=== PATIENT | female | born 1930 | race American Indian/Alaskan Native ===

== ENCOUNTER 2017-04-07 10:40 | Emergency (ER) | payer MEDICARE, MEDICAID ==
[2017-04-07 11:08] VITALS: RESP 20
--- NOTE | 2017-04-07 12:19 | C.PDOC ---
History Of Present Illness 86-year-old female, presents to the emergency department with complaints of difficulty ambulating. Patient with swollen lower extremities, and vascular injury to right leg. Patient notes that she is generally able to walk. yesterday , patient noticed that she was talking a long time to reach the door, and symptoms persisted this morning, prompting her visit to the ED. Denies any fevers or chills. Time Seen by Provider: 04/07/17 12:04 Chief Complaint (Nursing): Lower Extremity Problem/Injury History Per: Patient History/Exam Limitations: no limitations Onset/Duration Of Symptoms: Days Current Symptoms Are (Timing): Still Present Severity: Moderate Past Medical History Reviewed: Historical Data, Nursing Documentation, Vital Signs Vital Signs: Last Vital Signs Temp 99.2 F 04/07/17 14:30 Pulse 78 04/07/17 14:30 Resp 20 04/07/17 14:30 BP 126/54 L 04/07/17 14:30 Pulse Ox 99 04/07/17 14:55 - Medical History PMH: Arthritis, Asthma, Atrial Fibrillation, Cardia Arrhythmia, Diverticulitis, HTN, Migraine Denies: Gall Bladder Disease (''GALLSTONES REMOVED'') Surgical History: Cholecystectomy ("gallstones removed") - [facility] Procedures VACCINATION [facility] (05/21/15) Family History: States: No Known Family Hx - Social History Hx Alcohol Use: No Hx Substance Use: No - Immunization History Hx Tetanus Toxoid Vaccination: No Hx Influenza Vaccination: No Hx Pneumococcal Vaccination: No Review Of Systems Except As Marked, All Systems Reviewed And Found Negative. Constitutional: Negative for: Fever, Chills Cardiovascular: Negative for: Chest Pain, Palpitations Respiratory: Negative for: Shortness of Breath Gastrointestinal: Negative for: Nausea, Vomiting Genitourinary: Negative for: Dysuria, Frequency Musculoskeletal: Positive for: Leg Pain Physical Exam - Physical Exam Appears: Non-toxic, No Acute Distress Skin: Warm, Dry, No Rash Head: Atraumatic, Normacephalic Eye(s): bilateral: Normal Inspection, PERRL Nose: Normal Oral Mucosa: Moist Lips: Normal Appearing Neck: Normal ROM Chest: Symmetrical Cardiovascular: Rhythm Regular, No Murmur Respiratory: Normal Breath Sounds, No Accessory Muscle Use Gastrointestinal/Abdominal: Soft, No Tenderness Extremity: Other (B/L legs with pitting edema and venous stasis changes. ) Neurological/Psych: Oriented x3, Normal Speech ED Course And Treatment - Laboratory Results Result Diagrams: 04/07/17 12:39 04/07/17 12:39 O2 Sat by Pulse Oximetry: 99 Disposition Counseled Patient/Family Regarding: Studies Performed, Diagnosis, Need For Followup, Rx Given - Disposition Referrals: Ramon Turcios MD [Staff Provider] - Disposition: HOME/ ROUTINE Disposition Time: 14:53 Condition: GUARDED Prescriptions: Nitrofurantoin Macrocrystals [Macrobid] 1 cap PO BID #14 cap Instructions: Urinary Tract Infection in Women (DC) Forms: General Discharge Instructions - POA Present On Arrival: None - Clinical Impression Clinical Impression: UTI (urinary tract infection) - PA / HARNESS RIGGER / Resident Statement MD/DO has reviewed & agrees with the documentation as recorded. - Scribe Statement The provider has reviewed the documentation as recorded by the Scribe (Yudelka Mark)
[2017-04-07 12:42] LABS: BASO % 0.4 % (0.0-2.0); EOS # 0.1 K/uL (0.0-0.7); EOS % 1.1 % (0.0-4.0); HEMOGLOBIN 13.3 g/dL (11.0-16.0); LYMPH # 1.8 K/uL (1.0-4.3); LYMPH % 19.9 % (20.0-40.0); MEAN CELL VOLUME 86.4 fL (81.0-99.0); MEAN CORPUSCULAR HEMOGLOBIN 28.3 pg (27.0-31.0); MEAN CORPUSCULAR HGB CONC 32.7 g/dL (33.0-37.0); MEAN PLATELET VOLUME 8.8 fL (7.2-11.7); MONO % 11.5 % (0.0-10.0); NEUT # 5.9 K/uL (1.8-7.0); NEUT % 67.1 % (50.0-75.0); RBC 4.7 Mil/uL (3.80-5.20); RED CELL DISTRIBUTION WIDTH 14.4 % (11.5-14.5)
[2017-04-07 12:43] LABS: WHITE BLOOD COUNT 8.9 K/uL (4.8-10.8)
[2017-04-07 12:58] LABS: BLOOD UREA NITROGEN 22 mg/dL (7-17); GFR AFRICAN-AMERICAN 52; GFR NON-AFRICAN AMERICAN 43
[2017-04-07 12:59] LABS: CALCIUM 8.7 mg/dl (8.6-10.4)
[2017-04-07 13:08] LABS: B-TYPE NATRIURETIC PEPTIDE 23.2 pg/mL (0-900)
--- NOTE | 2017-04-07 13:20 | RAD ---
PROCEDURE: CHEST RADIOGRAPH, 1 VIEW HISTORY: SOB COMPARISON: 07/08/2016 FINDINGS: LUNGS: Clear. PLEURA: No pneumothorax or pleural fluid seen. CARDIOVASCULAR: Normal. OSSEOUS STRUCTURES: No significant abnormalities. VISUALIZED UPPER ABDOMEN: Normal. OTHER FINDINGS: None. IMPRESSION: No active disease.
[2017-04-07 13:25] LABS: SQUAMOUS EPITHIAL 3 /hpf (0-5); URINE BACTERIA RARE (<OCC); URINE BILIRUBIN NEGATIVE (NEGATIVE); URINE BLOOD NEGATIVE (NEGATIVE); URINE CLARITY Hazy (Clear); URINE COLOR Yellow (YELLOW); URINE GLUCOSE (UA) NORMAL (Normal); URINE LEUKOCYTE ESTERASE 3+ Leu/uL (Negative); URINE NITRATE NEGATIVE (NEGATIVE); URINE PROTEIN NEGATIVE (NEGATIVE)
[2017-04-07] MEDS ORDERED: cefTRIAXone IV 1 gm in Dextros 50 ML IVPB ONE ×2 (13:37→14:11)
[2017-04-07 14:31] VITALS: BP 126/54; PULSE 78; TEMP 99.2
[2017-04-07 14:55] VITALS: O2SAT 99
--- NOTE | 2017-04-09 07:05 | CARD ---
APPROVED REPORT EKG Measurement Heart [id number] <Conclusion> Sinus rhythm with 1st degree AV block Otherwise normal ECG
== END 2017-04-07 15:32 | disposition home or self-care (01) ==
LOC: C.ER 10:40
DX: N39.0 Urinary tract infection, site not specified (principal); R60.9 Edema, unspecified
CPT/HCPCS: 71010; 80048; 81001; 83880; 84484; 85025; 87086; 96365; 99284; J0696

== ENCOUNTER 2017-04-29 11:43 | Inpatient (IN) | payer MEDICARE, MEDICAID ==
--- NOTE | 2017-04-29 12:43 | C.PDOC ---
History Of Present Illness 86 yo female, presents with abdominal pain, chills, weakness, since this am. c/ o of diffuse abdominal pain. nofeers at home. mild cough, no v/d. Time Seen by Provider: 04/29/17 12:36 Chief Complaint (Nursing): Abdominal Pain Past Medical History Reviewed: Historical Data, Nursing Documentation, Vital Signs Vital Signs: Last Vital Signs Temp 98.2 F 04/30/17 06:00 Pulse 75 04/30/17 00:11 Resp 20 04/30/17 00:11 BP 129/73 04/30/17 00:11 Pulse Ox 96 04/30/17 00:11 - Medical History PMH: Alzheimer's Disease, Arthritis, Asthma, Atrial Fibrillation, Cardia Arrhythmia, Diverticulitis, HTN, Migraine Denies: Gall Bladder Disease (''GALLSTONES REMOVED'') Surgical History: Cholecystectomy ("gallstones removed") - [facility] Procedures VACCINATION [facility] (05/21/15) Family History: States: Unknown Family Hx - Social History Hx Alcohol Use: No Hx Substance Use: No - Immunization History Hx Tetanus Toxoid Vaccination: No Hx Influenza Vaccination: No (UNKNOWN) Hx Pneumococcal Vaccination: No Review Of Systems Except As Marked, All Systems Reviewed And Found Negative. Respiratory: Positive for: Cough Gastrointestinal: Positive for: Abdominal Pain Physical Exam - Physical Exam Appears: No Acute Distress, Chronically Ill Skin: Normal Color, Warm, Dry Eye(s): bilateral: Normal Inspection, PERRL, EOMI Nose: Normal Throat: Normal Neck: Normal Cardiovascular: Rhythm Regular Respiratory: Normal Breath Sounds Gastrointestinal/Abdominal: Normal Exam, Soft, Tenderness (lower abd ttp), No Guarding, No Rebound Back: Normal Inspection Extremity: Normal ROM ED Course And Treatment - Laboratory Results Result Diagrams: 04/29/17 12:46 04/29/17 13:31 O2 Sat by Pulse Oximetry: 95 Medical Decision Making Medical Decision Making: pt noted to be febirle on arrival - r/o sepsis, uti, pneumonia, abdominal pathology- labs imaging pending 630: noted luekocytosis. abd pain now resolved. ct neg. ua pending. hemodynamically stable. dr orozco accepts for sepsis. stable for floor. Disposition - Disposition Disposition: HOSPITALIZED Disposition Time: 06:00 Condition: FAIR - Clinical Impression Clinical Impression: Sepsis, Abdominal pain
[2017-04-29 12:50] LABS: BASO % 0.1 % (0.0-2.0); EOS # 0.1 K/uL (0.0-0.7); EOS % 0.7 % (0.0-4.0); HEMOGLOBIN 14.8 g/dL (11.0-16.0); LYMPH # 0.5 K/uL (1.0-4.3); LYMPH % 3.4 % (20.0-40.0); MEAN CELL VOLUME 85.1 fL (81.0-99.0); MEAN CORPUSCULAR HEMOGLOBIN 27.6 pg (27.0-31.0); MEAN CORPUSCULAR HGB CONC 32.5 g/dL (33.0-37.0); MEAN PLATELET VOLUME 9.5 fL (7.2-11.7); MONO # 0.5 K/uL (0.0-0.8); MONO % 3.5 % (0.0-10.0); NEUT # 13.5 K/uL (1.8-7.0); NEUT % 92.3 % (50.0-75.0); PLATELET COUNT 239 K/uL (130-400); RBC 5.34 Mil/uL (3.80-5.20); RED CELL DISTRIBUTION WIDTH 14.5 % (11.5-14.5)
[2017-04-29] MEDS ORDERED: Azithromycin 500 MG in Sodium Chloride 0.9% 250 ML IVPB STA (12:50)
[2017-04-29] MEDS ORDERED: cefTRIAXone IV 1 gm in Dextros 50 ML IVPB ONE ×2 (12:50→13:42)
[2017-04-29 12:51] LABS: WHITE BLOOD COUNT 14.6 K/uL (4.8-10.8)
[2017-04-29 12:58] LABS: INR 1.1
[2017-04-29 13:09] LABS: BANDS 8 % (0-2); EOSINOPHIL 1 % (0-4); LARGE PLATELETS PRESENT; LYMPHOCYTE 3 % (20-40); MONOCYTE 4 % (0-10); NEUTROPHIL 84 % (50-75); PLATELET ESTIMATE NORMAL (NORMAL); TOTAL CELLS COUNTED 100
[2017-04-29 13:09] LABS: VENOUS BLOOD GAS BASE EXCESS 4.8 mmol/L (0.0-2.0); VENOUS BLOOD GAS PCO2 48 mmHg (40-60); VENOUS BLOOD GAS PO2 19 mm/Hg (30-55); VENOUS BLOOD PH 7.41 (7.32-7.43)
--- NOTE | 2017-04-29 13:09 | RAD ---
PROCEDURE: CHEST RADIOGRAPH, 1 VIEW HISTORY: chest pain COMPARISON: None available. FINDINGS: LUNGS: The lungs are hyperinflated and there is peribronchial thickening with chronic changes in both lungs. No focal consolidation. PLEURA: No pneumothorax or pleural fluid seen. CARDIOVASCULAR: The heart is normal in size. Atherosclerotic aortic arch calcifications are present. OSSEOUS STRUCTURES: No significant abnormalities. VISUALIZED UPPER ABDOMEN: Normal. OTHER FINDINGS: None. IMPRESSION: No active pulmonary disease. COPD.
[2017-04-29] MEDS ORDERED: Azithromycin 500mg/250ML NS 500 MG/250 ML BAG IVPB ONE (13:42)
[2017-04-29 13:44] LABS: ALBUMIN 3.7 g/dL (3.5-5.0)
[2017-04-29 13:46] LABS: GFR AFRICAN-AMERICAN > 60; GFR NON-AFRICAN AMERICAN > 60
[2017-04-29 13:47] LABS: ALB/GLOB RATIO 1.2 (1.0-2.1); ALT/SGPT 26 U/L (9-52); AST/SGOT 18 U/L (14-36); BLOOD UREA NITROGEN 10 mg/dL (7-17); CALCIUM 8.7 mg/dl (8.6-10.4); LIPASE 39 U/L (23-300)
[2017-04-29] MEDS ORDERED: Iodixanol 320 MG/ML 100 ML BOTTLE IV ONE (16:49)
--- NOTE | 2017-04-29 17:58 | CT ---
PROCEDURE: CT Abdomen and Pelvis with contrast HISTORY: abd pain, fever COMPARISON: None. TECHNIQUE: Contrast dose: 100 cc Visipaque 320 Radiation dose: Total exam DLP = 437.12 mGy-cm. This CT exam was performed using one or more of the following dose reduction techniques: Automated exposure control, adjustment of the mA and/or kV according to patient size, and/or use of iterative reconstruction technique. FINDINGS: LOWER THORAX: Interstitial lung disease at the bases incompletely visualized. Acuity/ chronicity cannot be ascertained in the absence comparison studies. No discrete infiltrates, nodules or mass. LIVER: Hepatic steatosis. No focal masses. Low-attenuation well-circumscribed mass density right hepatic lobe. Mean Hounsfield unit values are higher than expected for simple cysts. The mass measures 2.5 x 3.2 cm. Internal calcification appears to be benign. GALLBLADDER AND BILE DUCTS: Status post cholecystectomy. No abnormality is seen in the gallbladder fossa. PANCREAS: Unremarkable. No gross lesion or ductal dilatation. SPLEEN: Unremarkable. ADRENALS: Unremarkable. No mass. KIDNEYS AND URETERS: Unremarkable. No hydronephrosis. No solid mass. Incidental finding(s): Simple cyst upper pole left kidney 12 mm. VASCULATURE: Unremarkable. No aortic aneurysm. BOWEL: Fecal impaction, constipation, diverticulosis without an acute inflammatory component. APPENDIX: No abnormalities to suggest acute appendicitis. No right lower quadrant inflammatory processes identified. PERITONEUM: Unremarkable. No free fluid. No free air. LYMPH NODES: Unremarkable. No enlarged lymph nodes. BLADDER: Unremarkable. REPRODUCTIVE: Prior hysterectomy. BONES: Scoliosis, secondary degenerative change at multiple levels. OTHER FINDINGS: None. IMPRESSION: No acute findings related to/accounting for the clinical presentation. Additional benign and/or incidental findings described above. Incidental finding(s): Likely benign, incompletely characterized cystic mass right hepatic lobe. Elective followup recommended.
[2017-04-29 18:27] LABS: SQUAMOUS EPITHIAL 1 /hpf (0-5); URINE BILIRUBIN NEGATIVE (NEGATIVE); URINE BLOOD NEGATIVE (NEGATIVE); URINE CLARITY Clear (Clear); URINE COLOR Yellow (YELLOW); URINE GLUCOSE (UA) NORMAL (Normal); URINE LEUKOCYTE ESTERASE TRACE Leu/uL (Negative); URINE NITRATE NEGATIVE (NEGATIVE); URINE PROTEIN NEGATIVE (NEGATIVE)
[2017-04-29 20:22] VITALS: RESP 20
[2017-04-29] MEDS ORDERED: Albuterol-Ipratrop 3 mg / 0.5 (3 ml) UD INH PRN (22:24)
--- NOTE | 2017-04-29 22:45 | CP.PCM.HP ---
History of Present Illness - History of Present Illness History of Present Illness: 86 year old female complaining of abdominal pain, chills and generalized malaise. Labs reveal a WBCs of 14,600. CT scan of the abdomen reveals no acute pathology. Admission was advised and follwing cultures antibiotic therapy was started. Past history includes ASHD, degenerative joint disease, hypertension and chronic obstructive pulmonary disease. Present on Admission - Present on Admission Any Indicators Present on Admission: No History of DVT/PE: No History of Uncontrolled Diabetes: No Urinary Catheter: No Decubitus Ulcer Present: No History Surgical Site Infection Following: None Past Patient History - Tetanus Immunizations Tetanus Immunization: Up to Date - Past Medical History & Family History Past Medical History?: Yes - Past Social History Smoking Status: Never Smoked Chewing Tobacco Use: No Cigar Use: No - CARDIAC Hx Atrial Fibrillation: Yes Hx Cardia Arrhythmia: Yes Hx Hypertension: Yes - PULMONARY Hx Asthma: Yes Hx Emphysema: Yes - NEUROLOGICAL Hx Alzheimer's Disease: Yes Hx Migraine: Yes - HEENT Hx HEENT Problems: Yes Hx Cataracts: Yes Hx Deafness: Yes (USES HEARING AID) - MUSCULOSKELETAL/RHEUMATOLOGICAL Hx Arthritis: Yes Hx Back Pain: Yes Hx Degenerative Joint Disease: Yes Hx Falls: Yes - GASTROINTESTINAL Hx Diverticulitis: Yes Hx Gall Bladder Disease: No (''GALLSTONES REMOVED'') - GENITOURINARY/GYNECOLOGICAL : 1 Para: 1 - PSYCHIATRIC Hx Substance Use: No - SURGICAL HISTORY Hx Cholecystectomy: Yes ("gallstones removed") - ANESTHESIA Hx Anesthesia: Yes Hx Anesthesia Reactions: No (UNKNOWN) Hx Malignant Hyperthermia: No Has any member of the family had a problem w/ anesthesia?: No Meds Allergies/Adverse Reactions: Allergies Allergy/AdvReac Type Severity Reaction Status Date / Time aspirin Allergy Verified 04/29/17 11:49 Physical Exam - Constitutional Appears: No Acute Distress - Head Exam Head Exam: NORMOCEPHALIC - Eye Exam Eye Exam: Normal appearance Pupil Exam: NORMAL ACCOMODATION - ENT Exam ENT Exam: Normal External Ear Exam - Neck Exam Neck exam: Positive for: Normal Inspection - Respiratory Exam Respiratory Exam: Decreased Breath Sounds - Cardiovascular Exam Cardiovascular Exam: REGULAR RHYTHM - GI/Abdominal Exam GI & Abdominal Exam: Hyperactive Bowel Sounds - Rectal Exam Rectal Exam: Deferred - Exam External exam: NORMAL EXTERNAL EXAM - Extremities Exam Extremities exam: Positive for: pedal edema - Back Exam Back exam: muscle spasm - Neurological Exam Neurological exam: Oriented x3 - Psychiatric Exam Psychiatric exam: Depressed Results - Vital Signs Recent Vital Signs: Last Vital Signs Temp 99.3 F 04/29/17 20:00 Pulse 79 04/29/17 20:00 Resp 20 04/29/17 20:00 BP 145/74 04/29/17 20:00 Pulse Ox 96 04/29/17 20:00 - Labs Result Diagrams: 04/29/17 12:46 04/29/17 13:31 Labs: Laboratory Results - last 24 hr 04/29/17 18:20 Urine Color Yellow Urine Clarity Clear Urine pH 7.0 Ur Specific [place] 1.035 H Urine Protein Negative Urine Glucose (UA) Normal Urine Ketones Negative Urine Blood Negative Urine Nitrate Negative Urine Bilirubin Negative Urine Urobilinogen 4.0 H Ur Leukocyte Esterase Trace Urine WBC (Auto) 9 H Urine RBC (Auto) 2 Ur Squamous Epith Cells 1 Assessment & Plan (1) Sepsis Status: Acute (2) Dizziness Status: Acute (3) Edema Status: Acute (4) Hypertension Status: Chronic Priority: Medium
[2017-04-29] MEDS: Potassium Chloride 20 mEq ER Tab PO SCH (22:56)
[2017-04-30 08:21] LABS: MEAN CORPUSCULAR HEMOGLOBIN 27.7 pg (27.0-31.0); MEAN CORPUSCULAR HGB CONC 32.6 g/dL (33.0-37.0); MEAN PLATELET VOLUME 8.6 fL (7.2-11.7); RBC 4.25 Mil/uL (3.80-5.20); RED CELL DISTRIBUTION WIDTH 14.4 % (11.5-14.5)
[2017-04-30 08:31] LABS: WHITE BLOOD COUNT 5.9 K/uL (4.8-10.8)
[2017-04-30 08:45] LABS: ALBUMIN 2.8 g/dL (3.5-5.0)
[2017-04-30 08:48] LABS: AST/SGOT 14 U/L (14-36); GFR AFRICAN-AMERICAN > 60; GFR NON-AFRICAN AMERICAN > 60
[2017-04-30 08:49] LABS: ALB/GLOB RATIO 1.1 (1.0-2.1); ALT/SGPT 26 U/L (9-52); BLOOD UREA NITROGEN 8 mg/dL (7-17); CALCIUM 8.2 mg/dl (8.6-10.4)
[2017-04-30] MEDS: Pantoprazole 40 mg EC Tab PO SCH (09:54)
[2017-04-30] MEDS: Enoxaparin 40 mg Syringe SC SCH (09:54)
[2017-04-30] MEDS: Potassium Chloride 20 mEq ER Tab PO SCH (09:54)
[2017-04-30] MEDS: diltiaZEM 180 mg/24 Hours CD Cap PO SCH (09:55)
[2017-04-30] MEDS: Nitroglycerin 0.4 mg/hr Top Patch TD SCH (09:55)
--- NOTE | 2017-04-30 17:06 | CP.PCM.CON ---
History of Present Illness - History of Present Illness History of Present Illness: 86 yo female, presents with abdominal pain, chills, weakness, since this am. c/ o of diffuse abdominal pain. no fevers at home. mild cough, no v/d. awake alert mildly confused denirs chest pain admitted for possible UTI/ sepsis - Medical History PMH: Alzheimer's Disease, Arthritis, Asthma, Atrial Fibrillation, Cardia Arrhythmia, Diverticulitis, HTN, Migraine Denies: Gall Bladder Disease (''GALLSTONES REMOVED'') Surgical History: Cholecystectomy ("gallstones removed") Review of Systems - Review of Systems All systems: reviewed and no additional remarkable complaints except - Constitutional Constitutional: As Per HPI, Anorexia, Chills, Fever - EENT Eyes: absent: As Per HPI, Blind Spots, Blurred Vision, Change in Vision, Decreased Night Vision, Diplopia, Discharge, Dry Eye, Exophthalmos, Floaters, Irritation, Itchy Eyes, Loss of Peripheral Vision, Pain, Photophobia, Requires Corrective Lenses, Sees Flashes, Spots in Vision, Tunnel Vision, Other Visual Disturbances, Loss of Vision, Other Ears: absent: As Per HPI, Decreased Hearing, Ear Discharge, Ear Pain, Tinnitus, Abnormal Hearing, Disequilibrium, Dizziness, Other Nose/Mouth/Throat: absent: As Per HPI, Epistaxis, Nasal Congestion, Nasal Discharge, Nasal Obstruction, Nasal Trauma, Nose Pain, Post Nasal Drip, Sinus Pain, Sinus Pressure, Bleeding Gums, Change in Voice, Dental Pain, Dry Mouth, Dysphagia, Halitosis, Hoarsness, Lip Swelling, Mouth Lesions, Mouth Pain, Odynophagia, Sore Throat, Throat Swelling, Tongue Swelling, Facial Pain, Neck Pain, Neck Mass, Other - Breasts Breasts: absent: As Per HPI, Change in Shape, Mass, Pain, Nipple Discharge, Nipple Inversion, Skin Changes, Swelling, Other - Cardiovascular Cardiovascular: absent: As Per HPI, Acrocyanosis, Chest Pain, Chest Pain at Rest , Chest Pain with Activity, Claudication, Diaphoresis, Dyspnea, Dyspnea on Exertion, Edema, Irregular Heart Rhythm, Pain Radiating to Arm/Neck/Jaw, Leg Edema, Leg Ulcers, Lightheadedness, Orthopnea, Palpitations, Paroxysmal Nocturnal Dyspnea, Pedal Edema, Radiating Pain, Rapid Heart Rate, Slow Heart Rate, Syncope, Other - Respiratory Respiratory: absent: As Per HPI, Cough, Dyspnea, Hemoptysis, Dyspnea on Exertion , Wheezing, Snoring, Stridor, Pain on Inspiration, Chest Congestion, Excessive Mucous Production, Change in Mucous Color, Pain with Coughing, Other - Gastrointestinal Gastrointestinal: absent: As Per HPI, Abdominal Pain, Belching, Bloating, Change in Bowel Habits, Change in Stool Character, Coffee Ground Emesis, Constipation, Cramping, Diarrhea, Dyspepsia, Dysphagia, Early Satiety, Excessive Flatus, Fecal Incontinence, Heartburn, Hematemesis, Hematochezia, Loose Stools, Melena, Nausea, Odynophagia, Temesmus, Vomiting, Other - Genitourinary Genitourinary: As Per HPI - Reproductive: Female Reproductive:Female: absent: As Per HPI, Amenorrhea, Amenorrhea/ Control, Currently Menstual, Cycle <21 Days, Cycle >35 Days, Cycle Variable, Menses 1-7 Days, Menses >/= 8 Days, Menses Variable, Cycle > 4 Weeks Between, No Menses for 6 Months, Heavy Menses, Light Menses, Normal Menses, Spotting Between Cycles , S/P Hysterectomy, Menopausal, Post Menopausal, Premenarche, Abnormal Vaginal Bleeding, Dysmenorrhea, Dyspareunia, Genital Lesions, Genital Pruritis, Pelvic Pain, Prolapse Symptoms, Sexual Dysfunction, Vaginal Discharge, Vaginal Dryness , Vaginal Odor, Vaginal Pruritis, Other - Menstruation Menstruation: absent: As Per HPI, Amenorrhea, Amenorrhea/ Control, Currently Menstual, Cycle <21 Days, Cycle >35 Days, Cycle Variable, Menses 1-7 Days, Menses >/= 8 Days, Menses Variable, Cycle > 4 Weeks Between, No Menses for 6 Months, Heavy Menses, Light Menses, Normal Menses, Spotting Between Cycles , S/P Hysterectomy, Menopausal, Post Menopausal, Premenarche, Abnormal Vaginal Bleeding, Dysmenorrhea, Other - Musculoskeletal Musculoskeletal: As Per HPI - Integumentary Integumentary: absent: As Per HPI, Acne, Alopecia, Bleeding Lesions, Change in Hair, Change in Nails, Change in Pigmentation, Changing Lesions, Dry Skin, Erythema, Furuncle, Hirsutism, Lesions, New Lesions, Non-Healing Lesions, Photosensitivity, Pruritus, Rash, Skin Pain, Skin Ulcer, Sores, Striae, Swelling , Unusual Bruising, Wounds, Jaundice, Other - Neurological Neurological: absent: As Per HPI, Abnormal Gait, Abnormal Hearing, Abnormal Movements, Abnormal Speech, Behavioral Changes, Burning Sensations, Confusion, Convulsions, Disequilibrium, Dizziness, Numbness, Focal Weakness, Frequent Falls , Headaches, Lack of Coordination, Loss of Vision, Memory Loss, Paresthesias, Radicular Pain, Restless Legs, Sensory Deficit, Syncope, Tingling, Tremor, Vertigo, Weakness, Other Visual Disturbances, Other - Psychiatric Psychiatric: absent: As Per HPI, Abnormal Sleep Pattern, Anhedonia, Anxiety, Auditory Hallucinations, Behavioral Changes, Change in Appetite, Change in Libido, Confusion, Depression, Difficulty Concentrating, Hallucinations, Homicidal Ideation, Hopelessness, Irritability, Memory Loss, Mood Swings, Panic Attacks, Paranoia, Suicidal Ideation, Visual Hallucinations, Tactile Hallucinations, Other - Endocrine Endocrine: absent: As Per HPI, Change in Body Appearance, Change in Libido, Cold Intolorance, Deepening of Voice, Excessive Sweating, Fatigue, Flushing, Heat Intolorance, Increase in Ring/Shoe/Hat Size, Palpitations, Polydipsia, Polyphagia, Polyuria, Other - Hematologic/Lymphatic Hematologic: absent: As Per HPI, Easy Bleeding, Easy Bruising, Lymphadenopathy, Other Past Patient History - Tetanus Immunizations Tetanus Immunization: Up to Date - Past Medical History & Family History Past Medical History?: Yes - Past Social History Smoking Status: Never Smoked Chewing Tobacco Use: No Cigar Use: No - CARDIAC Hx Hypertension: Yes - PULMONARY Hx Chronic Obstructive Pulmonary Disease (COPD): Yes - NEUROLOGICAL Hx Alzheimer's Disease: Yes Hx Migraine: Yes - HEENT Hx HEENT Problems: Yes Hx Cataracts: Yes Hx Deafness: Yes (USES HEARING AID) - MUSCULOSKELETAL/RHEUMATOLOGICAL Hx Arthritis: Yes - GASTROINTESTINAL Hx Diverticulitis: Yes Hx Gall Bladder Disease: No (''GALLSTONES REMOVED'') - GENITOURINARY/GYNECOLOGICAL : 1 Para: 1 - PSYCHIATRIC Hx Substance Use: No - SURGICAL HISTORY Hx Cholecystectomy: Yes ("gallstones removed") - ANESTHESIA Hx Anesthesia: Yes Hx Anesthesia Reactions: No (UNKNOWN) Hx Malignant Hyperthermia: No Has any member of the family had a problem w/ anesthesia?: No Meds Allergies/Adverse Reactions: Allergies Allergy/AdvReac Type Severity Reaction Status Date / Time aspirin Allergy Verified 04/29/17 11:49 - Medications Medications: Current Medications Albuterol/Ipratropium (Duoneb 3 Mg/0.5 Mg (3 Ml) Ud) 3 ml INH RQ6 PRN PRN Reason: Shortness of Breath Diltiazem HCl (Cardizem Cd) 180 mg PO DAILY [facility] Last Admin: 04/30/17 09:55 Dose: 180 mg Enoxaparin Sodium (Lovenox) 40 mg SC DAILY [facility] Last Admin: 04/30/17 09:54 Dose: 40 mg Furosemide (Lasix) 40 mg IVP DAILY [facility] Last Admin: 04/30/17 09:53 Dose: 40 mg Ceftriaxone Sodium 1 gm/ (Sodium Chloride) 100 mls @ 100 mls/hr IVPB DAILY [facility] Last Admin: 04/30/17 13:32 Dose: 100 mls/hr Meclizine HCl (Antivert) 12.5 mg PO BID PRN PRN Reason: Dizziness Last Admin: 04/30/17 09:54 Dose: 12.5 mg Montelukast Sodium (Singulair) 10 mg PO HS [facility] Last Admin: 04/29/17 22:56 Dose: 10 mg Nitroglycerin (Nitro-Dur 0.4 Mg/Hr Patch) 1 patch TD DAILY [facility] Last Admin: 04/30/17 09:55 Dose: 1 patch Pantoprazole Sodium (Protonix Ec Tab) 40 mg PO DAILY [facility] Last Admin: 04/30/17 09:54 Dose: 40 mg Potassium Chloride (K-Dur 20 Meq Er Tab) 20 meq PO DAILY [facility] Stop: 05/01/17 22:01 Last Admin: 04/30/17 09:54 Dose: 20 meq Physical Exam - Constitutional Appears: Non-toxic, Cachectic, Chronically Ill - Head Exam Head Exam: ATRAUMATIC, NORMAL INSPECTION, NORMOCEPHALIC - Eye Exam Eye Exam: PERRL. absent: Scleral icterus - ENT Exam ENT Exam: Mucous Membranes Dry, Normal External Ear Exam, Normal Oropharynx - Neck Exam Neck exam: Negative for: Lymphadenopathy, Thyromegaly - Respiratory Exam Respiratory Exam: Decreased Breath Sounds, Clear to Auscultation Bilateral - Cardiovascular Exam Cardiovascular Exam: REGULAR RHYTHM, +S1, +S2 - GI/Abdominal Exam GI & Abdominal Exam: Diminished Bowel Sounds, Soft. absent: Tenderness - Rectal Exam Rectal Exam: Deferred - Exam Exam: NORMAL INSPECTION - Extremities Exam Extremities exam: Positive for: pedal pulses present. Negative for: calf tenderness, pedal edema, tenderness - Back Exam Back exam: absent: CVA tenderness (L), CVA tenderness (R) - Neurological Exam Neurological exam: Alert, CN II-XII Intact, Reflexes Normal - Psychiatric Exam Psychiatric exam: Normal Mood - Skin Skin Exam: Dry Results - Vital Signs Recent Vital Signs: Last Vital Signs Temp 98.6 F 04/30/17 15:51 Pulse 76 04/30/17 15:51 Resp 20 04/30/17 15:51 BP 141/71 04/30/17 15:51 Pulse Ox 97 04/30/17 15:51 - Labs Result Diagrams: 04/30/17 08:10 04/30/17 08:10 Labs: Laboratory Results - last 24 hr 04/29/17 04/30/17 04/30/17 18:20 00:18 02:03 WBC RBC Hgb Hct MCV MCH MCHC RDW Plt Count MPV Sodium Potassium Chloride Carbon Dioxide Anion Gap BUN Creatinine Est GFR ( Amer) Est GFR (Non-Af Amer) POC Glucose (mg/dL) 93 96 Random Glucose Calcium Total Bilirubin AST ALT Alkaline Phosphatase Total Protein Albumin Globulin Albumin/Globulin Ratio Urine Color Yellow Urine Clarity Clear Urine pH 7.0 Ur Specific [place] 1.035 H Urine Protein Negative Urine Glucose (UA) Normal Urine Ketones Negative Urine Blood Negative Urine Nitrate Negative Urine Bilirubin Negative Urine Urobilinogen 4.0 H Ur Leukocyte Esterase Trace Urine WBC (Auto) 9 H Urine RBC (Auto) 2 Ur Squamous Epith Cells 1 04/30/17 04/30/17 08:10 08:10 WBC 5.9 D RBC 4.25 Hgb 12.0 D Hct 36.1 MCV 85.0 MCH 27.7 MCHC 32.6 L RDW 14.4 Plt Count 216 MPV 8.6 Sodium 142 Potassium 3.7 Chloride 101 Carbon Dioxide 29 Anion Gap 15 BUN 8 Creatinine 0.6 L Est GFR ( Amer) > 60 Est GFR (Non-Af Amer) > 60 POC Glucose (mg/dL) Random Glucose 89 Calcium 8.2 L Total Bilirubin 0.8 AST 14 D ALT 26 Alkaline Phosphatase 42 Total Protein 5.3 L Albumin 2.8 L D Globulin 2.5 Albumin/Globulin Ratio 1.1 Urine Color Urine Clarity Urine pH Ur Specific [place] Urine Protein Urine Glucose (UA) Urine Ketones Urine Blood Urine Nitrate Urine Bilirubin Urine Urobilinogen Ur Leukocyte Esterase Urine WBC (Auto) Urine RBC (Auto) Ur Squamous Epith Cells Assessment & Plan (1) Abdominal pain Status: Acute (2) Sepsis Status: Acute - Assessment and Plan (Free Text) Assessment: await cultures cont iv antibiotics
[2017-05-01 07:58] LABS: GFR AFRICAN-AMERICAN > 60; GFR NON-AFRICAN AMERICAN > 60
[2017-05-01 07:59] LABS: BLOOD UREA NITROGEN 7 mg/dL (7-17)
[2017-05-01 08:00] LABS: CALCIUM 8.3 mg/dl (8.6-10.4)
[2017-05-01] MEDS: Nitroglycerin 0.4 mg/hr Top Patch TD SCH (10:36)
[2017-05-01] MEDS: diltiaZEM 180 mg/24 Hours CD Cap PO SCH (10:37)
[2017-05-01] MEDS: Enoxaparin 40 mg Syringe SC SCH (10:37)
[2017-05-01] MEDS: Potassium Chloride 20 mEq ER Tab PO SCH (10:37)
[2017-05-01] MEDS: Pantoprazole 40 mg EC Tab PO SCH (10:41)
--- NOTE | 2017-05-01 23:17 | CP.PCM.PN ---
Subjective - Date & Time of Evaluation Date of Evaluation: 05/01/17 Time of Evaluation: 14:30 - Subjective Subjective: Patient less confused and afebrile. She feels less congested but is still very fatigued. Cultures pending. WBCs down to 5,900. Continue antibiotic therapy. Objective - Vital Signs/Intake and Output Vital Signs (last 24 hours): Temp Pulse Resp BP Pulse Ox 99 F 70 20 129/72 96 05/01/17 16:00 05/01/17 16:00 05/01/17 16:00 05/01/17 16:00 05/01/17 16:00 - Medications Medications: Current Medications Albuterol/Ipratropium (Duoneb 3 Mg/0.5 Mg (3 Ml) Ud) 3 ml INH RQ6 PRN PRN Reason: Shortness of Breath Diltiazem HCl (Cardizem Cd) 180 mg PO DAILY [facility] Last Admin: 05/01/17 10:37 Dose: 180 mg Enoxaparin Sodium (Lovenox) 40 mg SC DAILY [facility] Last Admin: 05/01/17 10:37 Dose: 40 mg Furosemide (Lasix) 40 mg IVP DAILY [facility] Last Admin: 05/01/17 10:42 Dose: 40 mg Ceftriaxone Sodium 1 gm/ (Sodium Chloride) 100 mls @ 100 mls/hr IVPB DAILY [facility] Last Admin: 05/01/17 10:39 Dose: 100 mls/hr Meclizine HCl (Antivert) 12.5 mg PO BID PRN PRN Reason: Dizziness Last Admin: 04/30/17 09:54 Dose: 12.5 mg Montelukast Sodium (Singulair) 10 mg PO HS [facility] Last Admin: 05/01/17 21:32 Dose: 10 mg Nitroglycerin (Nitro-Dur 0.4 Mg/Hr Patch) 1 patch TD DAILY [facility] Last Admin: 05/01/17 10:36 Dose: 1 patch Pantoprazole Sodium (Protonix Ec Tab) 40 mg PO DAILY [facility] Last Admin: 05/01/17 10:41 Dose: 40 mg - Labs Labs: 04/30/17 08:10 05/01/17 06:56 PT 13.0 SECONDS (9.7-12.2) H 04/29/17 12:46 INR 1.1 04/29/17 12:46 APTT 29 SECONDS (21-34) 04/29/17 12:46 Assessment and Plan (1) Sepsis Status: Acute (2) Dizziness Status: Acute (3) Edema Status: Acute (4) Hypertension Status: Chronic
[2017-05-02] MEDS: Enoxaparin 40 mg Syringe SC SCH ×2 (08:12→11:43)
[2017-05-02] MEDS: Nitroglycerin 0.4 mg/hr Top Patch TD SCH ×2 (08:23→11:43)
[2017-05-02] MEDS: diltiaZEM 180 mg/24 Hours CD Cap PO SCH ×2 (08:23→11:44)
[2017-05-02] MEDS: Pantoprazole 40 mg EC Tab PO SCH ×2 (08:23→11:43)
[2017-05-02 08:38] LABS: HEMOGLOBIN 13.7 g/dL (11.0-16.0); MEAN CELL VOLUME 84.9 fL (81.0-99.0); MEAN CORPUSCULAR HEMOGLOBIN 27.9 pg (27.0-31.0); MEAN CORPUSCULAR HGB CONC 32.9 g/dL (33.0-37.0); MEAN PLATELET VOLUME 8.9 fL (7.2-11.7); RBC 4.92 Mil/uL (3.80-5.20); RED CELL DISTRIBUTION WIDTH 14.1 % (11.5-14.5); WHITE BLOOD COUNT 4.3 K/uL (4.8-10.8)
[2017-05-02 08:45] LABS: BLOOD UREA NITROGEN 7 mg/dL (7-17); GFR AFRICAN-AMERICAN > 60; GFR NON-AFRICAN AMERICAN > 60
[2017-05-02 08:46] LABS: CALCIUM 8.9 mg/dl (8.6-10.4)
--- NOTE | 2017-05-02 18:19 | CP.PCM.PN ---
Subjective - Date & Time of Evaluation Date of Evaluation: 05/02/17 Time of Evaluation: 07:00 - Subjective Subjective: AWAKE ALERT OOB TO CHAIR LESS COUGH AND LESS SOB NO FEVER TODAY Objective - Vital Signs/Intake and Output Vital Signs (last 24 hours): Temp Pulse Resp BP Pulse Ox 98.9 F 70 20 150/43 L 94 L 05/02/17 15:48 05/02/17 15:48 05/02/17 15:48 05/02/17 15:48 05/02/17 15:48 Intake and Output: 05/02/17 05/02/17 06:59 18:59 Intake Total 150 Output Total 5 Balance 145 - Medications Medications: Current Medications Albuterol/Ipratropium (Duoneb 3 Mg/0.5 Mg (3 Ml) Ud) 3 ml INH RQ6 PRN PRN Reason: Shortness of Breath Diltiazem HCl (Cardizem Cd) 180 mg PO DAILY [facility] Last Admin: 05/02/17 11:44 Dose: Not Given Enoxaparin Sodium (Lovenox) 40 mg SC DAILY [facility] Last Admin: 05/02/17 11:43 Dose: Not Given Furosemide (Lasix) 40 mg IVP DAILY [facility] Last Admin: 05/02/17 11:43 Dose: Not Given Ceftriaxone Sodium 1 gm/ (Sodium Chloride) 100 mls @ 100 mls/hr IVPB DAILY [facility] Last Admin: 05/02/17 12:16 Dose: 100 mls/hr Meclizine HCl (Antivert) 12.5 mg PO BID PRN PRN Reason: Dizziness Last Admin: 05/02/17 08:23 Dose: 12.5 mg Montelukast Sodium (Singulair) 10 mg PO HS [facility] Last Admin: 05/01/17 21:32 Dose: 10 mg Nitroglycerin (Nitro-Dur 0.4 Mg/Hr Patch) 1 patch TD DAILY [facility] Last Admin: 05/02/17 11:43 Dose: Not Given Pantoprazole Sodium (Protonix Ec Tab) 40 mg PO DAILY [facility] Last Admin: 05/02/17 11:43 Dose: Not Given - Labs Labs: 05/02/17 08:24 05/02/17 08:24 PT 13.0 SECONDS (9.7-12.2) H 04/29/17 12:46 INR 1.1 04/29/17 12:46 APTT 29 SECONDS (21-34) 04/29/17 12:46 - Constitutional Appears: Non-toxic, Cachectic, Chronically Ill - Head Exam Head Exam: NORMOCEPHALIC - Eye Exam Eye Exam: PERRL. absent: Scleral icterus - ENT Exam ENT Exam: Mucous Membranes Dry - Neck Exam Neck Exam: absent: Lymphadenopathy - Respiratory Exam Respiratory Exam: Clear to Ausculation Bilateral - Cardiovascular Exam Cardiovascular Exam: REGULAR RHYTHM - GI/Abdominal Exam GI & Abdominal Exam: Distended, Soft - Rectal Exam Rectal Exam: Deferred - Exam Exam: NORMAL INSPECTION - Extremities Exam Extremities Exam: absent: Pedal Edema - Back Exam Back Exam: absent: CVA tenderness (L), CVA tenderness (R) Assessment and Plan (1) Abdominal pain Status: Acute (2) Sepsis Status: Acute - Assessment and Plan (Free Text) Assessment: CULTURES NEG THUS FAR CONT RX FOR UTI/ EXAC COPD DECONDITIONED WILL NEED PT/OT
[2017-05-03 08:16] VITALS: BP 124/68; PULSE 63; TEMP 98; O2SAT 97
[2017-05-03] MEDS: diltiaZEM 180 mg/24 Hours CD Cap PO SCH (09:31)
[2017-05-03] MEDS: Pantoprazole 40 mg EC Tab PO SCH (09:31)
[2017-05-03] MEDS: Nitroglycerin 0.4 mg/hr Top Patch TD SCH (09:32)
[2017-05-03] MEDS: Enoxaparin 40 mg Syringe SC SCH (09:32)
[2017-05-03] MEDS ORDERED: Potassium Chloride 20 mEq/15 ml LIQ UD PO ONE (11:00)
--- NOTE | 2017-05-03 18:09 | CP.PCM.PN ---
Subjective - Date & Time of Evaluation Date of Evaluation: 05/03/17 Time of Evaluation: 11:00 - Subjective Subjective: Awake, alert, follows commands, no acute distress. Objective - Vital Signs/Intake and Output Vital Signs (last 24 hours): Temp Pulse Resp BP Pulse Ox 98 F 63 20 124/68 97 05/03/17 08:15 05/03/17 08:15 05/03/17 08:15 05/03/17 09:31 05/03/17 08:15 Intake and Output: 05/03/17 05/03/17 06:59 18:59 Intake Total 200 460 Balance 200 460 - Labs Labs: 05/02/17 08:24 05/02/17 08:24 PT 13.0 SECONDS (9.7-12.2) H 04/29/17 12:46 INR 1.1 04/29/17 12:46 APTT 29 SECONDS (21-34) 04/29/17 12:46 Assessment and Plan - Assessment and Plan (Free Text) Assessment: Patient is seen and examined. Admitted with sepsis, weakness. Awake, alert, follows commands. No sob or chest pains noted. D/W DR Turcios, plan to discharge home as per family. Refused any rehab by the daughter. Home [facility] PT arranged. Advised to follow up with PMD in 1 week.
--- NOTE | 2017-05-03 22:52 | CP.PCM.PN ---
Subjective - Date & Time of Evaluation Date of Evaluation: 05/03/17 Time of Evaluation: 13:35 - Subjective Subjective: Patient feeling much better. No congestion or sore throat. Patient responded to antibiotic therapy . Right knee pain persists. Objective - Vital Signs/Intake and Output Vital Signs (last 24 hours): Temp Pulse Resp BP Pulse Ox 98 F 63 20 124/68 97 05/03/17 08:15 05/03/17 08:15 05/03/17 08:15 05/03/17 09:31 05/03/17 08:15 Intake and Output: 05/03/17 05/04/17 18:59 06:59 Intake Total 460 Balance 460 - Labs Labs: 05/02/17 08:24 05/02/17 08:24 PT 13.0 SECONDS (9.7-12.2) H 04/29/17 12:46 INR 1.1 04/29/17 12:46 APTT 29 SECONDS (21-34) 04/29/17 12:46 - Constitutional Appears: No Acute Distress - Head Exam Head Exam: NORMAL INSPECTION - Eye Exam Eye Exam: Normal appearance Pupil Exam: NORMAL ACCOMODATION - ENT Exam ENT Exam: Normal Exam - Neck Exam Neck Exam: Normal Inspection - Respiratory Exam Respiratory Exam: Decreased Breath Sounds - Cardiovascular Exam Cardiovascular Exam: REGULAR RHYTHM - GI/Abdominal Exam GI & Abdominal Exam: Hyperactive Bowel Sounds - Rectal Exam Rectal Exam: Deferred - Exam External exam: NORMAL EXTERNAL EXAM - Extremities Exam Extremities Exam: Tenderness - Back Exam Back Exam: NORMAL INSPECTION - Neurological Exam Neurological Exam: Oriented x3 - Psychiatric Exam Psychiatric exam: Depressed - Skin Skin Exam: Dry Assessment and Plan (1) Sepsis Status: Acute (2) Dizziness Status: Acute (3) Edema Status: Acute (4) Hypertension Status: Chronic
--- NOTE | 2017-05-03 22:56 | CP.PCM.DIS ---
Provider - Provider Date of Admission: 04/29/17 18:01 Attending physician: Ramon Turcios MD Time Spent in preparation of Discharge (in minutes): 24 Diagnosis - Discharge Diagnosis (1) Sepsis Status: Acute (2) Dizziness Status: Acute (3) Edema Status: Acute (4) Hypertension Status: Chronic Priority: Medium Hospital Course - Lab Results Lab Results: Most Recent Lab Values WBC 4.3 K/uL (4.8-10.8) L 05/02/17 08:24 RBC 4.92 Mil/uL (3.80-5.20) 05/02/17 08:24 Hgb 13.7 g/dL (11.0-16.0) 05/02/17 08:24 Hct 41.8 % (34.0-47.0) 05/02/17 08:24 MCV 84.9 fL (81.0-99.0) 05/02/17 08:24 MCH 27.9 pg (27.0-31.0) 05/02/17 08:24 MCHC 32.9 g/dL (33.0-37.0) L 05/02/17 08:24 RDW 14.1 % (11.5-14.5) 05/02/17 08:24 Plt Count 276 K/uL (130-400) 05/02/17 08:24 MPV 8.9 fL (7.2-11.7) 05/02/17 08:24 Neut % (Auto) 92.3 % (50.0-75.0) H 04/29/17 12:46 Lymph % (Auto) 3.4 % (20.0-40.0) L 04/29/17 12:46 [place] % (Auto) 3.5 % (0.0-10.0) 04/29/17 12:46 Eos % (Auto) 0.7 % (0.0-4.0) 04/29/17 12:46 Baso % (Auto) 0.1 % (0.0-2.0) 04/29/17 12:46 Neut # 13.5 K/uL (1.8-7.0) H 04/29/17 12:46 Lymph # 0.5 K/uL (1.0-4.3) L 04/29/17 12:46 [place] # 0.5 K/uL (0.0-0.8) 04/29/17 12:46 Eos # 0.1 K/uL (0.0-0.7) 04/29/17 12:46 Baso # 0.0 K/uL (0.0-0.2) 04/29/17 12:46 Neutrophils % (Manual) 84 % (50-75) H 04/29/17 12:46 Band Neutrophils % 8 % (0-2) H 04/29/17 12:46 Lymphocytes % (Manual) 3 % (20-40) L 04/29/17 12:46 Monocytes % (Manual) 4 % (0-10) 04/29/17 12:46 Eosinophils % (Manual) 1 % (0-4) 04/29/17 12:46 Platelet Estimate Normal (NORMAL) 04/29/17 12:46 Large Platelets Present 04/29/17 12:46 RBC Morphology Normal 04/29/17 12:46 PT 13.0 SECONDS (9.7-12.2) H 04/29/17 12:46 INR 1.1 04/29/17 12:46 APTT 29 SECONDS (21-34) 04/29/17 12:46 pO2 19 mm/Hg (30-55) L 04/29/17 13:05 VBG pH 7.41 (7.32-7.43) 04/29/17 13:05 VBG pCO2 48 mmHg (40-60) 04/29/17 13:05 VBG HCO3 26.8 mmol/L 04/29/17 13:05 VBG Total CO2 31.9 mmol/L (22-28) H 04/29/17 13:05 VBG O2 Sat (Calc) 41.6 % (40-65) 04/29/17 13:05 VBG Base Excess 4.8 mmol/L (0.0-2.0) H 04/29/17 13:05 VBG Potassium 3.9 mmol/L (3.6-5.2) 04/29/17 13:05 Sodium 141.0 mmol/l (132-148) 04/29/17 13:05 Chloride 105.0 mmol/L (98-107) 04/29/17 13:05 Glucose 121 mg/dl (65-105) H 04/29/17 13:05 Lactate 1.8 mmol/L (0.7-2.1) 04/29/17 13:05 Sodium 142 mmol/L (132-148) 05/02/17 08:24 Potassium 3.3 mmol/L (3.6-5.2) L 05/02/17 08:24 Chloride 97 mmol/L (98-107) L 05/02/17 08:24 Carbon Dioxide 29 mmol/L (22-30) 05/02/17 08:24 Anion Gap 18 (10-20) 05/02/17 08:24 BUN 7 mg/dL (7-17) 05/02/17 08:24 Creatinine 0.7 MG/DL (0.7-1.2) 05/02/17 08:24 Est GFR ( Amer) > 60 05/02/17 08:24 Est GFR (Non-Af Amer) > 60 05/02/17 08:24 POC Glucose (mg/dL) 96 mg/dL (65-110) 04/30/17 02:03 Random Glucose 126 mg/dL (65-105) H 05/02/17 08:24 Calcium 8.9 mg/dl (8.6-10.4) 05/02/17 08:24 Total Bilirubin 0.8 mg/dL (0.2-1.3) 04/30/17 08:10 AST 14 U/L (14-36) D 04/30/17 08:10 ALT 26 U/L (9-52) 04/30/17 08:10 Alkaline Phosphatase 42 U/L (38-126) 04/30/17 08:10 Troponin I < 0.0120 ng/mL (0.00-0.120) 04/29/17 13:31 Total Protein 5.3 g/dL (6.3-8.3) L 04/30/17 08:10 Albumin 2.8 g/dL (3.5-5.0) L D 04/30/17 08:10 Globulin 2.5 gm/dL (2.2-3.9) 04/30/17 08:10 Albumin/Globulin Ratio 1.1 (1.0-2.1) 04/30/17 08:10 Lipase 39 U/L (23-300) 04/29/17 13:31 Venous Blood Potassium 3.9 mmol/L (3.6-5.2) 04/29/17 13:05 Urine Color Yellow (YELLOW) 04/29/17 18:20 Urine Clarity Clear (Clear) 04/29/17 18:20 Urine pH 7.0 (5.0-8.0) 04/29/17 18:20 Ur Specific Ophiem 1.035 (1.003-1.030) H 04/29/17 18:20 Urine Protein Negative mg/dL (NEGATIVE) 04/29/17 18:20 Urine Glucose (UA) Normal mg/dL (Normal) 04/29/17 18:20 Urine Ketones Negative mg/dL (NEGATIVE) 04/29/17 18:20 Urine Blood Negative (NEGATIVE) 04/29/17 18:20 Urine Nitrate Negative (NEGATIVE) 04/29/17 18:20 Urine Bilirubin Negative (NEGATIVE) 04/29/17 18:20 Urine Urobilinogen 4.0 mg/dL (0.2-1.0) H 04/29/17 18:20 Ur Leukocyte Esterase Trace Reginald/uL (Negative) 04/29/17 18:20 Urine WBC (Auto) 9 /hpf (0-5) H 04/29/17 18:20 Urine RBC (Auto) 2 /hpf (0-3) 04/29/17 18:20 Ur Squamous Epith Cells 1 /hpf (0-5) 04/29/17 18:20 Discharge Exam - Head Exam Head Exam: NORMAL INSPECTION - Eye Exam Eye Exam: Normal appearance Pupil Exam: NORMAL ACCOMODATION - ENT Exam ENT Exam: Normal Exam - Neck Exam Neck exam: Normal Inspection - Respiratory Exam Respiratory Exam: Decreased Breath Sounds - Cardiovascular Exam Cardiovascular Exam: REGULAR RHYTHM - GI/Abdominal Exam GI & Abdominal Exam: Hypoactive Bowel Sounds - Rectal Exam Rectal Exam: Deferred - Exam External exam: NORMAL EXTERNAL EXAM - Extremities Exam Extremities exam: tenderness - Back Exam Back exam: NORMAL INSPECTION - Neurological Exam Neurological exam: Oriented x3 - Psychiatric Exam Psychiatric exam: Depressed - Skin Skin Exam: Dry Discharge Plan - Discharge Medications Prescriptions: Potassium Chloride [K-Dur 20] 20 meq PO DAILY #7 tab - Follow Up Plan Condition: FAIR Disposition: HOME/ ROUTINE Instructions: Potassium Chloride (By mouth), Urinary Tract Infection in Women ( DC), Heart Healthy Diet (DC), Sepsis (GEN), Weakness (GEN)
== END 2017-05-03 16:10 | disposition home or self-care (01) | DRG 872 ==
LOC: C.ER 11:43 → C.9E 18:01 → C.3T 18:22
PROVIDERS: ADMIT Internal Medicine; ATTEND Internal Medicine
DX: A41.9 Sepsis, unspecified organism (principal); J44.1 Chronic obstructive pulmonary disease with (acute) exacerbation; N39.0 Urinary tract infection, site not specified; G30.9 Alzheimer's disease, unspecified; F02.80 Dementia in other diseases classified elsewhere, unspecified severity, without behavioral disturbance, psychotic disturbance, mood disturbance, and anxiety; R65.20 Severe sepsis without septic shock; I10 Essential (primary) hypertension; J45.909 Unspecified asthma, uncomplicated; M19.90 Unspecified osteoarthritis, unspecified site; I25.10 Atherosclerotic heart disease of native coronary artery without angina pectoris; R60.9 Edema, unspecified